=== PATIENT | female | born 1990 | race American Indian/Alaskan Native ===

== ENCOUNTER 2017-07-05 11:28 | Emergency (ER) | payer BC, OTHER ==
[2017-07-05 11:54] VITALS: BMI 28.4
--- NOTE | 2017-07-05 12:23 | OBHP ---
Datetime: 07/05/2017 11:59 IP Adm Impression: , intrauterine IP Chief Complaint Other: back pain and cramping Admit Comment, IP Provider: at 31+weeks came with c/o back pain and cramping x 2 days,no dysuri a, no ctxs, vb, lof,=fm. sex 1 week ago. obhx primi pmh de med pnv all nkda psh de soch de ve closed a/ at 31weeks with back pain ua tylenol, prn cont yudelka and efm cnt close observation Pelvic Type - PN: Adequate Extremities - PN: Normal Abdomen - PN: Normal Back - PN: Normal Breast - PN: Normal Lungs - PN: Normal Heart - PN: Normal Thyroid - PN: Normal Neurologic - PN: Normal HEENT - PN: Normal General - PN: Normal FHR - Baseline A Provider: 140 Contraction Comments Provider: none Comments, ACOG Physical Exam: gravid,non ten ext no edema,no calf ten Vital Signs Provider: Reviewed; Within Normal Limits NICHD Variability Prov Fetus A: Moderate 6-25bpm Dilatation, Provider: 0 Effacement, Provider: 0 Station, Provider: -3 Genitourinary Exam: Normal DTRs - PN: Normal
[2017-07-05 12:30] LABS: RBC URINE 4 /hpf (0-3); URINE BACTERIA FEW (<OCC); URINE BILIRUBIN NEGATIVE (NEGATIVE); URINE BLOOD NEGATIVE (NEGATIVE); URINE COLOR Yellow (YELLOW); URINE GLUCOSE (UA) 3+ mg/dL (Normal); URINE KETONE TRACE mg/dL (NEGATIVE); URINE PROTEIN NEGATIVE (NEGATIVE); URINE UROBILINOGEN NORMAL mg/dL (0.2-1.0); WBC URINE 11 /hpf (0-5)
[2017-07-05 12:31] LABS: URINE LEUKOCYTE ESTERASE TRACE Leu/uL (Negative)
--- NOTE | 2017-07-05 12:47 | OBHP ---
Datetime: 07/05/2017 11:59 Admit Comment, IP Provider: at 31+weeks came with c/o back pain and cramping x 2 days,no dysuri a, no ctxs, vb, lof,=fm. sex 1 week ago. obhx primi pmh de med pnv all nkda psh de soch de ve closed a/ at 31weeks with back pain ua tylenol, prn cont yudelka and efm cnt close observation [id number] 3+gluc fs 85 plan dc home ptl given po hyration f/u pmd
--- NOTE | 2017-07-05 12:47 | OBDCSUM ---
Datetime: 07/05/2017 12:44 Discharged to, Provider: Home Follow up at, Provider: [facility] 16 Follow up in weeks, Provider: clinic Discharge Comment, Provider: ia home ptl given po hyration f/u pmd Discharge Diagnosis Prov Other: 31weeks nst back pain
[2017-07-05 13:09] VITALS: RESP 18; O2SAT 99
[2017-07-05 17:10] VITALS: BP 121/73; PULSE 84; TEMP 98
== END 2017-07-05 13:06 | disposition home or self-care (01) ==
LOC: C.EROB 11:28
DX: O26.893 Other specified pregnancy related conditions, third trimester (principal); M54.9 Dorsalgia, unspecified; Z3A.31 31 weeks gestation of pregnancy